=== PATIENT | female | born 1975 | race Caucasian/White ===

== ENCOUNTER 2017-05-16 15:04 | Emergency (ER) | payer BC ==
[2017-05-16 16:14] LABS: CHLORIDE,CL 104 mmol/L (98-107); SODIUM,NA 141 mmol/L (136-145)
--- NOTE | 2017-05-21 14:25 | EDM.PDOC ---
ED HPI GENERAL MEDICAL PROBLEM - General Chief Complaint: Abdominal Pain Time Seen by Provider: 05/16/17 15:04 Source of Information: Reports: Patient History Limitations: Reports: No Limitations - History of Present Illness INITIAL COMMENTS - FREE TEXT/NARRATIVE: Presents to ER with complaints of lower abdominal/mid pelvic pain. States she was seen in clinic and seen by Agueda Razo for this on 03-09-17. She had a UA performed but did not have a UTI. No treatment was started. Pt. continued to have pelvic discomfort so presented to ER. She denied any fever or chills. No nausea/vomiting or diarrhea. States symptoms have been happening for weeks. Duration: Constant (1504) Location: Reports: Abdomen, Pelvis Quality: Reports: Burning Severity: Moderate - Related Data Allergies Allergy/AdvReac Type Severity Reaction Status Date / Time hydrocodone Allergy Cannot Verified 05/16/17 15:22 Remember pantoprazole [From Protonix] Allergy Cannot Verified 05/16/17 15:22 Remember Sulfa (Sulfonamide Allergy Cannot Verified 05/16/17 15:22 Antibiotics) Remember Home Meds: Home Meds Esomeprazole Magnesium [Nexium 24Hr] 20 mg PO DAILY 05/16/17 [History] Past Medical History Gastrointestinal History: Reports: Chronic Constipation, GERD - Past Surgical History Female Surgical History: Reports: Hysterectomy Social & Family History - Tobacco Use Smoking Status *Q: Current Status Unknown ED ROS GENERAL - Review of Systems Review Of Systems: See Below Constitutional: Reports: No Symptoms HEENT: Reports: No Symptoms Respiratory: Reports: No Symptoms Cardiovascular: Reports: No Symptoms Endocrine: Reports: No Symptoms GI/Abdominal: Reports: Abdominal Pain. Denies: Black Stool, Bloody Stool, Constipation, Diarrhea : Reports: Pain. Denies: Discharge, Dysuria, Flank Pain, Frequency, Hematuria Musculoskeletal: Reports: No Symptoms Skin: Reports: No Symptoms Neurological: Reports: No Symptoms Psychiatric: Reports: No Symptoms Hematologic/Lymphatic: Reports: No Symptoms ED EXAM, GI/ABD - Physical Exam Exam: See Below Exam Limited By: No Limitations General Appearance: Alert, WD/WN, No Apparent Distress Nose: Normal Inspection, Normal Mucosa, No Blood Throat/Mouth: Normal Inspection, Normal Lips, Normal Teeth, Normal Gums, Normal Oropharynx, Normal Voice, No Airway Compromise Head: Atraumatic, Normocephalic Neck: Normal Inspection, Supple, Non-Tender, Full Range of Motion Respiratory/Chest: No Respiratory Distress, Lungs Clear, Normal Breath Sounds, No Accessory Muscle Use, Chest Non-Tender Cardiovascular: Normal Peripheral Pulses, Regular Rate, Rhythm, No Edema, No Gallop, No JVD, No Murmur, No Rub GI/Abdominal Exam: Normal Bowel Sounds, No Organomegaly, No Distention, No Mass (Female) Exam: Normal External Exam, Adnexal Tenderness (L adnexal tenderness. Had had hysterectomy.) Course - Vital Signs Last Recorded V/S: Last Vital Signs Temp 37.2 C 05/16/17 15:10 Pulse 100 05/16/17 15:10 Resp 18 05/16/17 15:10 BP 128/84 05/16/17 16:50 Pulse Ox 99 05/16/17 15:10 - Orders/Labs/Meds Labs: Laboratory Tests 05/16/17 05/16/17 05/16/17 Range/Units 15:36 15:36 15:39 WBC 10.1 H (4.0-10.0) x10^3/uL RBC 4.52 (4.00-5.50) x10^6/uL Hgb 14.3 (12.0-16.0) g/dL Hct 41.6 (33.0-47.0) % MCV 92.0 (78.0-93.0) fL MCH 31.6 (26.0-32.0) pg MCHC 34.4 (32.0-36.0) g/dL RDW Coeff of Salty 12.5 (10.0-15.0) % Plt Count 209 (130-400) x10^3/uL Neut % (Auto) 71.5 (50.0-80.0) % Lymph % (Auto) 20.6 L (25.0-50.0) % Tyrrell % (Auto) 6.4 (2.0-11.0) % Eos % (Auto) 1.3 (0.0-4.0) % Baso % (Auto) 0.2 (0.2-1.2) % Sodium 141 (136-145) mmol/L Potassium 3.6 (3.5-5.1) mmol/L Chloride 104 (98-107) mmol/L Carbon Dioxide 26 (21-32) mmol/L BUN 13 (7-18) mg/dL Creatinine 0.8 (0.55-1.02) mg/dL Est Cr Clr Drug Dosing TNP Estimated GFR (MDRD) > 60 Glucose 137 H (74-106) mg/dL Calcium 8.9 (8.5-10.1) mg/dL Corrected Calcium 8.82 (8.5-10.1) mg/dL Total Bilirubin 0.5 (0.2-1.0) mg/dL AST 32 (15-37) U/L ALT 55 (14-59) U/L Alkaline Phosphatase 97 (46-116) U/L C-Reactive Protein 2.9 H (<=0.9) mg/dL Total Protein 8.0 (6.4-8.2) g/dL Albumin 4.1 (3.4-5.0) g/dL Globulin 3.9 Albumin/Globulin Ratio 1.05 Urine Color (YELLOW) Urine Appearance (CLEAR) Urine pH (5.0-8.0) Ur Specific Lyons Urine Protein (NEGATIVE) mg/dL Urine Glucose (UA) (NEGATIVE) mg/dL Urine Ketones (NEGATIVE) mg/dL Urine Occult Blood (NEGATIVE) Urine Nitrite (NEGATIVE) Urine Bilirubin (NEGATIVE) Urine Urobilinogen (0.2) EU/dL Ur Leukocyte Esterase (NEGATIVE) Urine RBC (NOT SEEN) /HPF Urine WBC (NOT SEEN) /HPF Ur Squamous Epith Cells (NEGATIVE) /HPF Amorphous Sediment Urine Bacteria (NEGATIVE) /HPF Urine Mucus (NEGATIVE) /LPF Ur Yeast w Hyphae Urine Yeast (Budding) POC Urine HCG, Qual Negative 05/16/17 Range/Units 15:39 WBC (4.0-10.0) x10^3/uL RBC (4.00-5.50) x10^6/uL Hgb (12.0-16.0) g/dL Hct (33.0-47.0) % MCV (78.0-93.0) fL MCH (26.0-32.0) pg MCHC (32.0-36.0) g/dL RDW Coeff of Salty (10.0-15.0) % Plt Count (130-400) x10^3/uL Neut % (Auto) (50.0-80.0) % Lymph % (Auto) (25.0-50.0) % Tyrrell % (Auto) (2.0-11.0) % Eos % (Auto) (0.0-4.0) % Baso % (Auto) (0.2-1.2) % Sodium (136-145) mmol/L Potassium (3.5-5.1) mmol/L Chloride (98-107) mmol/L Carbon Dioxide (21-32) mmol/L BUN (7-18) mg/dL Creatinine (0.55-1.02) mg/dL Est Cr Clr Drug Dosing Estimated GFR (MDRD) Glucose (74-106) mg/dL Calcium (8.5-10.1) mg/dL Corrected Calcium (8.5-10.1) mg/dL Total Bilirubin (0.2-1.0) mg/dL AST (15-37) U/L ALT (14-59) U/L Alkaline Phosphatase (46-116) U/L C-Reactive Protein (<=0.9) mg/dL Total Protein (6.4-8.2) g/dL Albumin (3.4-5.0) g/dL Globulin Albumin/Globulin Ratio Urine Color Dark yellow H (YELLOW) Urine Appearance Cloudy H (CLEAR) Urine pH 5.5 (5.0-8.0) Ur Specific Lyons 1.025 Urine Protein Negative (NEGATIVE) mg/dL Urine Glucose (UA) Negative (NEGATIVE) mg/dL Urine Ketones Negative (NEGATIVE) mg/dL Urine Occult Blood Negative (NEGATIVE) Urine Nitrite Negative (NEGATIVE) Urine Bilirubin Negative (NEGATIVE) Urine Urobilinogen 0.2 (0.2) EU/dL Ur Leukocyte Esterase Negative (NEGATIVE) Urine RBC 0-5 (NOT SEEN) /HPF Urine WBC 0-5 (NOT SEEN) /HPF Ur Squamous Epith Cells Moderate H (NEGATIVE) /HPF Amorphous Sediment Few Urine Bacteria Moderate H (NEGATIVE) /HPF Urine Mucus Moderate H (NEGATIVE) /LPF Ur Yeast w Hyphae Few Urine Yeast (Budding) Few POC Urine HCG, Qual Departure - Departure Time of Disposition: 17:05 Disposition: Home, Self-Care 01 Condition: Good Clinical Impression: BV (bacterial vaginosis) - Discharge Information Instructions: Pelvic Pain, Female, [id number], Bacterial Vaginosis, Easy-to- Read Referrals: PCP,None [Primary Care Provider] - Forms: ED Department Discharge Additional Instructions: Ultrasound scheduled for 11:15AM on Sunday05-21-17. Come to the radiology dept. at [facility] for the exam. Come 15 min. early. Come with a full bladder. Flagyl 500mg twice daily for 7 days. Return to ER if pain worsens or if you can't wait until Sunday. There is a good possibility that you have an ovarian cyst as well.
== END 2017-05-16 17:05 | disposition home or self-care (01) ==
LOC: VM.ED 15:04
DX: N76.0 Acute vaginitis (principal); B96.89 Other specified bacterial agents as the cause of diseases classified elsewhere; Z88.2 Allergy status to sulfonamides; Z88.5 Allergy status to narcotic agent; Z88.8 Allergy status to other drugs, medicaments and biological substances
CPT/HCPCS: 36415; 80053; 81001; 81025; 85025; 86140; 87210; 87491; 87591; 99284

== ENCOUNTER 2024-01-07 09:56 | Day surgery (SDC) | payer OTHER ==
[~2024-01-07 09:56] MED LIST: Lactated Ringers 1,000 ML IV SCH
[2024-01-07] MEDS: Lactated Ringers 1,000 ML IV SCH (10:18)
[2024-01-07] MEDS ORDERED: fentaNYL 100 MCG/2 ML SDV ONE (10:55)
[2024-01-07] MEDS ORDERED: Midazolam 1 MG/ML 2 ML SDV ONE (10:56)
[2024-01-07] MEDS ORDERED: Propofol 200 MG/20 ML SDV ONE ×2 (10:56→11:19)
== END 2024-01-07 12:30 | disposition home or self-care (01) ==
LOC: VM.SDS 09:56
PROVIDERS: ATTEND Surgery
DX: R10.9 Unspecified abdominal pain (principal); G89.29 Other chronic pain; K21.9 Gastro-esophageal reflux disease without esophagitis; Z79.4 Long term (current) use of insulin; Z79.899 Other long term (current) drug therapy
CPT/HCPCS: J2250; J2704; J3010; J7120